=== PATIENT | male | born 1980 | race Caucasian/White ===

== ENCOUNTER 2022-08-27 20:12 | Emergency (ER) | payer MEDICAID ==
[~2022-08-27] VITALS: Ht 180.3 cm; Wt 125.0 kg
[2022-08-27] MEDS ORDERED: SODIUM CHLORIDE 0.9% 1,000 ML IV ONE (22:15)
[2022-08-27] MEDS ORDERED: TETANUS, DIPHTHERIA, PERTUSSIS VAC/PF 0.5ML (>10YR OLD) IM ONE (22:15)
[2022-08-27] MEDS ORDERED: FENTANYL CITRATE/PF 50MCG/ML 2ML VIAL IV ONE (22:15)
[2022-08-27] MEDS ORDERED: FENTANYL CITRATE/PF 50MCG/ML 2ML VIAL IV PRN (22:30)
[2022-08-27 22:50] LABS: CHLORIDE 107 mEq/L (98-107)
[2022-08-27 22:53] LABS: HEMATOCRIT. 44.1 % (42.0-52.0); HEMOGLOBIN. 15.1 g/dL (14.0-18.0); MEAN CORPUSCULAR HEMOGLOBIN 30.3 pg (28.0-32.0); MEAN CORPUSCULAR VOLUME 88.6 fL (80.0-94.0); MEAN PLATELET VOLUME 8.2 fl (7.4-10.4); PLATELET 211 x1000/uL (130-400); RED BLOOD CELL COUNT 4.97 mill/uL (4.7-6.1); RED CELL DISTRIBUTION WIDTH 13.1 % (11.6-14.6)
[2022-08-27 22:55] LABS: PARTIAL THROMBOPLASTIN TIME 23.9 sec (23.4-31.0)
[2022-08-27 23:11] LABS: PLATELET ESTIMATE NORMAL
[2022-08-27] MEDS ORDERED: KETAMINE HCL 50 MG/ML 10ML IV ONE (23:45)
[2022-08-27] MEDS ORDERED: MIDAZOLAM HCL 2 MG/2 ML VIAL IV ONE (23:45)
[2022-08-28] MEDS ORDERED: NAPR-1129 MT (03:55)
[2022-08-28 04:20] VITALS: BP 120/68; PULSE 68; RESP 15; TEMP 98.1; O2SAT 97
== END 2022-08-28 04:23 | disposition home or self-care (01) ==
LOC: ER 20:12
DX: S00.03XA Contusion of scalp, initial encounter (principal); S53.105A Unspecified dislocation of left ulnohumeral joint, initial encounter; G89.11 Acute pain due to trauma; F10.129 Alcohol abuse with intoxication, unspecified; W18.39XA Other fall on same level, initial encounter; Y93.89 Activity, other specified; Y92.89 Other specified places as the place of occurrence of the external cause; Y99.8 Other external cause status; Y90.0 Blood alcohol level of less than 20 mg/100 ml
CPT/HCPCS: 99285; 70450; 24600; 96374; 80053; 85025; 85610; 85730; 86850; 86900; 86901; 36415; 73030; 73070 ×2; 73090; 70486; 72125; 90715; 90471; 99152; J3010; J7030; J3490; J2250